=== PATIENT | male | born 1955 | race Caucasian/White ===

== ENCOUNTER 2018-07-09 08:26 | Day surgery (SDC) | payer BC ==
[~2018-07-09] VITALS: Ht 188 cm; Wt 112.5 kg
[~2018-07-09 08:26] MED LIST: ANASTROZOLE1 MG; ARGININE PO; COZAAR50 MG; GLUCOPHAGE1000 MG; KLONOPIN0.5 MG; PAPAVERINE IC; PIOGLITAZONE HC30 MG; TADALAFIL PO; XALATAN 0.0052.5 ML; ZOCOR40 MG; [UNRECOGNIZED DRUG - OTHER] IC
[2018-07-09 08:58] LABS: HEMATOCRIT 45.8 % (42.0-54.0); HEMOGLOBIN 16.5 g/dL (13.5-17.5); MCH 32.5 pg (26.0-34.0); MCV 90.2 fL (80.0-100.0); MEAN PLATELET VOLUME 10.3 fL (7.4-10.4); RBC 5.08 10x6/uL (4.20-6.10); RDW 13.6 % (11.5-14.5); WBC 4.8 10x3/uL (4.8-10.8)
[2018-07-09 09:07] LABS: ANION GAP 9.4 mmol/L (8-16); CALCIUM 9.3 mg/dL (8.5-10.1); CARBON DIOXIDE 31.1 mmol/L (21.0-32.0); CREATININE - SERUM 1.4 mg/dL (0.6-1.3); POTASSIUM - SERUM 4.5 mmol/L (3.5-5.1)
[2018-07-09 09:21] VITALS: Ht 188 cm; Wt 112.5 kg
--- NOTE | 2018-07-09 13:54 | NUR ---
PATIENT ARRIVED TO ROOM VIA STRETCHER. REPORT FROM SE HUMMEL.
--- NOTE | 2018-07-09 17:20 | NUR ---
PATIENT LEFT THE UNIT VIA WHEELCHAIR AFTER IV WAS REMOVED WITH CATHETER IN TACT. PATIENT RECEIVED TEACHING AND STATED UNDERSTANDING CHRISTIANE
--- NOTE | 2018-07-12 13:56 | OP ---
PATIENT NAME: KEVIN ALEXIS MEDICAL RECORD: [id number] :53 LOCATION:D.OPS ADMISSION DATE: SURGEON: SCOTT DIETRICH MD DATE OF OPERATION: 07/09/2018 PREOPERATIVE DIAGNOSES: 1. Subcutaneous left periumbilical abdominal wall mass. 2. Umbilical mass at the base of the umbilicus. POSTOPERATIVE DIAGNOSES: 1 Left periumbilical subcutaneous abdominal wall mass, frozen section, benign. 2. No umbilical mass, small umbilical hernia. PROCEDURES: 1. Excisional biopsy of left periumbilical subcutaneous mass with frozen section. 2. Exploration of umbilicus. SURGEON: Scott Dietrich MD POSTAL INSPECTOR: None. BLOOD LOSS: Minimal. ANESTHESIA: General. COMPLICATIONS: None. The risks, possible complications and alternatives to the procedure were explained to the patient. He elects to proceed. OPERATIVE COURSE: The patient was conveyed to the operating room electively on 07/09/2018. General anesthesia was induced by anesthesia staff. The abdomen was sterilely prepped and draped. An incision was accomplished transversely overlying the left periumbilical mass. This mass was to the left of the umbilicus and inferior to it. Sharp dissection was carried down to the level of the subcutaneous mass, which was excised with scissors. It was sent to the pathologist for frozen section examination, which revealed a benign process. Meticulous hemostasis was achieved with electrocautery. The subdermis was approximated with interrupted 3-0 Vicryls. The skin was approximated with a running intracuticular 4-0 Vicryl. A midline incision was accomplished within the umbilicus. I then unroofed the umbilical skin from the underlying connective tissue. The umbilical mass was an umbilical hernia, which was reduced and then closed with a single horizontal mattress of 0 Vicryl. The skin was approximated with a single subcuticular 3-0 Vicryl and then multiple 3-0 Vicryl [place]. Sterile dressings were applied. The patient was noted to have a left lung nodule on the preoperative chest x-ray. The patient is to undergo a CT of the chest as was recommended by the radiologist. Additionally, in order to ensure that this is not a metastatic lesion, I am going to order a CT of the abdomen and pelvis as well. The patient will be dismissed home with hydrocodone for pain. TRANSINT:[id number] Voice Confirmation ID: [id number] DOCUMENT ID: [id number] OPERATIVE REPORT [id number] KEVIN ALEXIS ROBERT MD at 1356 CC: CLIFTON OROURKE MD [id number] DICTATION DATE: 07/09/18 1539 [employer]EVER[employer] ASSISTANT MANAGER: 07/09/18 2153 [facility] 07/09/18 [place] [id number]
== END 2018-07-09 17:20 | disposition home or self-care (01) ==
LOC: D.OPS 08:26 → D.PAN 10:30 → D.OPS 10:30 → D.PAN 10:40 → D.OPS 17:20
PROVIDERS: Anesthesiology
DX: R19.05 Periumbilic swelling, mass or lump (principal); K42.9 Umbilical hernia without obstruction or gangrene; Z01.812 Encounter for preprocedural laboratory examination